=== PATIENT | female | born 1995 | race Caucasian/White ===

== ENCOUNTER 2020-01-24 19:23 | Outpatient (CLI) | payer BC ==
[2020-01-24 20:03] LABS: BILIRUBIN NEGATIVE (NEGATIVE); GLUCOSE NEGATIVE (NEGATIVE); KETONE NEGATIVE (NEGATIVE); NITRITE NEGATIVE (NEGATIVE); UROBILINOGEN NORMAL (NORMAL)
== END 2020-01-24 21:50 | disposition home or self-care (01) ==
LOC: D.LDO 19:23
PROVIDERS: ATTEND Student in an Organized Health Care Education/Training Program
DX: O26.899 Other specified pregnancy related conditions, unspecified trimester (principal); Z3A.00 Weeks of gestation of pregnancy not specified; M54.5 Low back pain

== ENCOUNTER 2020-03-23 20:03 | Inpatient (IN) | payer BC ==
[~2020-03-23] VITALS: Ht 162.6 cm; Wt 75.7 kg
[2020-03-23 21:20] VITALS: BP 121/57; Ht 162.6 cm; Wt 75.7 kg
[2020-03-23] MEDS ORDERED: PREPLUS CA-FE1 EACH PO (21:46)
[2020-03-23 22:08] LABS: HEMATOCRIT 30.5 % (36.0-48.0); HEMOGLOBIN 9.7 g/dL (12-16); MCH 26.9 pg (26.0-34.0); MCHC 31.8 g/dL (31.0-37.0); MCV 84.7 fL (80.0-100.0); MEAN PLATELET VOLUME 10.9 fL (7.4-10.4); RBC 3.6 10x6/uL (4.00-5.40); RDW 14.1 % (11.5-14.5); WBC 10.9 10x3/uL (4.8-10.8)
[2020-03-23 22:16] LABS: BILIRUBIN NEGATIVE (NEGATIVE); GLUCOSE NEGATIVE (NEGATIVE); KETONE NEGATIVE (NEGATIVE); NITRITE NEGATIVE (NEGATIVE); RED CELLS - URINE 0-5 /hpf (0-5); UROBILINOGEN NORMAL (NORMAL)
[2020-03-23 22:17] LABS: WHITE CELLS - URINE 0-5 /hpf (NEGATIVE)
[2020-03-23 22:18] LABS: BACTERIA MODERATE /hpf (NEGATIVE); EPITHELIAL CELLS 0-5 /hpf (0-5)
[2020-03-25 06:10] LABS: RAPID PLASMA REAGIN Non Reactive (Non Reactive)
--- NOTE | 2020-03-25 12:40 | NUR ---
pt up to br with assist x1, unable to void, pericare done and taught. pt voiced understanding. pt transferred to room 1257. encouraged pt to call when needs to void.
--- NOTE | 2020-03-25 16:00 | NUR ---
REPORT RECEIVED FROM Kriss GONZALEZ RN.
--- NOTE | 2020-03-25 16:55 | NUR ---
TO ROOM FOR VS. MOTHER SITTING UP IN BED WATCHING TV WITH BABY IN ARMS. ASSISTED TO BR TO VOID AND DO PERICARE. VOIDED 800CC WITHOUT DIFFICULTY. GOWN CHANGED. ASSISTED BACK TO BED. INFANT PLACED IN MOTHER'S ARMS. SIDE RAILS UP X2. NO NEEDS OR CONCERNS VOICED AT THIS TIME.
[2020-03-25 17:00] VITALS: BP 105/55
--- NOTE | 2020-03-25 18:00 | NUR ---
PT SITTING UP IN BED . NO NEEDS OR CONCERNS AT THIS TIME.
[2020-03-25 19:55] VITALS: BP 120/70
--- NOTE | 2020-03-25 19:55 | NUR ---
ASSESSMENT PER FLOW SHEET, VS OBTAINED, SALINE LOCK IN LEFT FA INTACT WITH NO REDNESS OR EDEMA, FF, ML, U/U, LITE BLEEDING NOTED ON FITO PAD WITH NO CLOTS, PT REPORTS A SMALL PEA SIZE CLOT EARLIER TODAY, PT REPORTS FLATUS, NO BM AND VOIDING WITH NO DIFFICULTY, USING FITO CARE INST, PT DENIES PAIN AT THIS TIME, REQUESTS CUP OF ICE, PT'S MOM HOLDING AT THIS TIME
--- NOTE | 2020-03-25 20:10 | NUR ---
CUP OF ICE PROVIDED, PT DENIES FURTHER NEEDS
--- NOTE | 2020-03-25 21:25 | NUR ---
PT REPORTS HAVING A DIFFICULT TIME GETTING INFANT TO LATCH, INFORMED PT THAT I WILL HAVE QI FROM THE [facility] COME TO ASSIST, PT VERBALIZES UNDERSTANDING, DENIES FURTHER NEEDS, ASSISTED PTS MOM GETTING BED READY FOR HER
--- NOTE | 2020-03-25 22:09 | NUR ---
PT [employer] LIGHT, REQUESTED [facility], PT STATES "I FOUND THEM", PT'S MOM INQUIRES ABOUT PTS BLEEDING, STATES "SHE WAS UP WALKING AROUND AND HAD TO CHANGE HER PAD AGAIN", PAD IN TRASH CAN NOTED TO HAVE LITE BLEEDING WITH NO CLOTS, PT STATES "I JUST CHANGED IT AGAIN BECAUSE I DON'T LIKE TO FEEL WET DOWN THERE" TALKED TO PT ABOUT PP HEMORRHAGE, PT VERBALIZES UNDERSTANDING, CHECKED FUNDUS, FF, ML, U/U, INFORMED PT THAT I WILL CHECK HER PAD IN AN HOUR TO SEE WHAT IT LOOKS LIKE, PT VERBALIZES UNDERSTANDING, DENIES FURTHER NEEDS, PT'S MOM HOLDING AT THIS TIME
--- NOTE | 2020-03-26 | NUR ---
PT RESTING WITH EYES CLOSED, RESP QUIET, NO DISTRESS NOTED, LEFT UNDISTURBED AT THIS TIME, IN OPEN CRIB CART AND PTS MOM ASLEEP ON COUCH
--- NOTE | 2020-03-26 00:38 | NUR ---
INFANT TO [facility] VIA OPEN CRIB CART PER QI REYES, RN [facility] NURSE
--- NOTE | 2020-03-26 02:27 | NUR ---
PT AWAKE, TRYING TO BREASTFEED, PT DENIES NEEDS AT THIS TIME, PT'S MOM AT BEDSIDE
--- NOTE | 2020-03-26 04:15 | NUR ---
PT AWAKE, HOLDING , STILL WON'T LATCH OR TAKE BOTTLE, TO [facility] FOR EVALUATION, PT DENIES NEEDS OR PAIN AT THIS TIME, PT'S MOM AT BEDSIDE
--- NOTE | 2020-03-26 04:43 | NUR ---
INFANT TO ROOM VIA OPEN CRIB CART PER [facility] NURSE
[2020-03-26 06:24] LABS: BASOPHILS 0.1 % (0-2); EOSINOPHILS 1.3 % (0-7); HEMATOCRIT 25.6 % (36.0-48.0); IMMATURE GRANULOCYTES 0.3 % (0-5); LYMPHOCYTES 16.3 % (15-50); MCH 26.4 pg (26.0-34.0); MCHC 31.3 g/dL (31.0-37.0); MCV 84.5 fL (80.0-100.0); MONOCYTES 7.5 % (2-11); NEUTROPHILS 74.5 % (40-80); PLATELET COUNT 240 10x3/uL (130-400); RBC 3.03 10x6/uL (4.00-5.40); RDW 14.3 % (11.5-14.5)
[2020-03-26 08:15] VITALS: BP 105/61
--- NOTE | 2020-03-26 08:15 | NUR ---
AM ASSESSMENT COMPLETED, SEE FLOWSHEET. PT DENIES HEAVY BLEEDING OR PASSING CLOTS. PT DENIES SOB, DENIES DIZZINESS. FRESH ICE WATER SERVED. PT HAS REGULAR BREAKFAST TRAY ON BEDSIDE TABLE. MOTHER AT BEDSIDE. IN ROOM, BEING HELD BY PT. SRUP X2, CALL LIGHT AND PHONE WITHIN REACH.
--- NOTE | 2020-03-26 08:35 | NUR ---
DR. GODWIN ON UNIT, REPORT GIVEN TO PT IS REQUESTING SOMETHING STRONGER THAN THE MOTRIN FOR GENERALIZED BODY ACHES AND PAINS POST DELIVERY. VERBAL OREDER RECEIVED TO ADMINISTER PERCOCET 5 MG ONE PO X 1.
--- NOTE | 2020-03-26 09:05 | NUR ---
TO PT'S ROOM WITH PERCOCET TO ADMINISTER, PT STATES "I THINK I WILL JUST WAIT ON THAT, I HAVE ALREADY GOTTEN SLEEPY AND I'LL GET IT LATER WHEN I NEED IT, MAYBE BEFORE I GO HOME". PT DENIES ALL OTHER NEEDS AT THIS TIME. CLEAN LINENS, PERIPADS PROVIDED. PT'S MOTHER AT BEDSIDE. SRUP X2, CALL LIGHT AND PHONE WITHIN REACH.
--- NOTE | 2020-03-26 11:25 | NUR ---
ROOM CHECK, PT IS LYING ON HER RIGHT TILT, EYES CLOSED, RESTING, RESP EVEN AND UL. PT NOT DISTURBED AT THIS TIME. SRUP X2, CALL LIGHT AND PHONE WITHIN REACH.
--- NOTE | 2020-03-26 13:00 | NUR ---
PT ASSISTED UP TO THE BATHROOM, GAIT SLOW BUT STEADY. PT VOIDS PER SELF WITHOUT DIFFICULTY, UNMEASURED AMOUNT. PERICARE DONE PER SELF. PT DENIES HEAVY BLEEDING OR PASSING CLOTS. BED LINENS CHANGED. CLEAN GOWN PROVIDED. PT CONTINUES TO DENY SOB, DIZZINESS OR DIFICULTY BREATHING. PT HAS REGULAR LUNCH TRAY ON BEDSIDE TABLE. DENIES ALL OTHER NEEDS. SEE EMAR FOR ALL MEDS ADM BY THIS RN. SRUP X2, CALL LIGHT AND PHONE WITHIN REACH.
--- NOTE | 2020-03-26 16:50 | NUR ---
DISCHARGE INSTRUCTIONS EXPLAINED TO PT, PT DENIES QUESTIONS AT THIS TIME. PT PROVIDED WITH D/C INSTRUCTIONS, PP INSTRUCTIONS, AND EMERGENCY INFORMATION SHEETS. DR. GODWIN HAS RECOMMENDED PT TAKE OVER THE COUNTER MOTRIN 600 MG PO EVERY 6 HOURS NEEDED FOR PAIN, AND IRON PO TWICE A DAY, OVER THE COUNTER. PT DENIES ALL QUESTIONS. COPIES PROVIDED TO PT. SRUP X2, CALL LIGHT AND PHONE WITHIN REACH.
== END 2020-03-26 16:45 | disposition home or self-care (01) | DRG 807 ==
LOC: D.LD 20:03
PROVIDERS: ADMIT Student in an Organized Health Care Education/Training Program; ATTEND Student in an Organized Health Care Education/Training Program
PROC: 10E0XZZ Delivery of Products of Conception, External Approach (ICD-10-PCS; principal; 2020-03-25)
PROC: 3E0P7VZ Introduction of Hormone into Female Reproductive, Via Natural or Artificial Opening (ICD-10-PCS; 2020-03-25)
PROC: 3E033VJ Introduction of Other Hormone into Peripheral Vein, Percutaneous Approach (ICD-10-PCS; 2020-03-25)
DX: O69.1XX0 Labor and delivery complicated by cord around neck, with compression, not applicable or unspecified (principal); Z37.0 Single live birth; O70.0 First degree perineal laceration during delivery; Z3A.40 40 weeks gestation of pregnancy

== ENCOUNTER 2020-06-05 20:47 | Emergency (ER) | payer BC ==
[~2020-06-05] VITALS: Ht 162.6 cm; Wt 70.3 kg
[~2020-06-05 20:47] MED LIST: PREPLUS CA-FE1 EACH PO
[2020-06-05 20:51] VITALS: BP 156/65; Ht 162.6 cm; Wt 70.3 kg
[2020-06-05] MEDS ORDERED: POLYTRIM EYE DR10 ML EACH EYE (21:23)
== END 2020-06-05 21:51 | disposition home or self-care (01) ==
LOC: D.ER 20:47
DX: H10.89 Other conjunctivitis (principal)